=== PATIENT | female | born 1940 | race Caucasian/White ===

== ENCOUNTER 2017-01-04 16:58 | Inpatient (IN) | payer MEDICARE, OTHER ==
[~2017-01-04] VITALS: Ht 154.9 cm; Wt 68.1 kg
[~2017-01-04 16:58] MED LIST: ASPI-351 PO; CHOL10008 PO; CLOP75TA14 PO; CYAN250T14 PO; ESTR0.5T4 PO; HYDR25TA4 PO; LISI10TA PO; LOPRESSOR25 MG PO; SIMV5TAB PO; SYN75 PO
[2017-01-04 20:00] VITALS: BP 139/75; PULSE 61; RESP 16; O2SAT 97
[2017-01-04] MEDS ORDERED: Senna-Docusate 8.6-50 mg Tablet PO PRN (20:00)
[2017-01-04] MEDS ORDERED: Polyethylene Glycol (PEG) 17 Gm Powder PO PRN (20:00)
[2017-01-04] MEDS ORDERED: Ondansetron 2 mg/mL 2 mL Inj IVPUSH PRN (20:00)
[2017-01-04] MEDS ORDERED: Atropine 1 mg/10 mL (Code) Syringe IVPUSH PRN (20:00)
[2017-01-04] MEDS ORDERED: Alum-Mag Hydrox-Simeth 30 mL Suspension PO PRN (20:00)
[2017-01-04] MEDS: 0.9% Sodium Chloride 1,000 ML IV SCH (21:22)
[2017-01-04] MEDS ORDERED: LISI10TA PO ×2 (21:32→21:39)
[2017-01-04] MEDS ORDERED: HYDR25TA4 PO (21:39)
[2017-01-04] MEDS ORDERED: ASPI325T32 PO (21:39)
[2017-01-04] MEDS ORDERED: METO1TAB38 PO (21:39)
[2017-01-04] MEDS ORDERED: SIMV40TA5 PO (21:39)
[2017-01-04] MEDS ORDERED: LEVO100T6 PO (21:39)
[2017-01-04 21:59] LABS: Creatine Kinase 67 U/L (21-215)
--- NOTE | 2017-01-04 23:14 | HP ---
[address] [address] HISTORY AND PHYSICAL PATIENT: CARA ESPINOZA : 1940 MR#: [id number] ADMIT: 01/04/2017 JOB ID: [id number] DATE: 01/04/2017 REASON FOR ADMISSION: Unstable angina. HISTORY OF PRESENT ILLNESS: The patient is a 75-year-old, delightful woman with known history of hypertension, hyperlipidemia, coronary artery disease status post angioplasty to the right coronary artery 2010, history of smoking who was transferred from [facility] for further diagnostic evaluation. The patient states that she was doing fine when in the middle of the night she started having epigastric substernal chest pain while she was asleep. The pain lasted for a good half hour to 45 minutes. She woke her daughter up and came to [facility]. She was admitted early this morning to [facility]. During her transport, she was given a nitroglycerin pill which dropped her blood pressure significantly, so much so requiring IV fluids. Since then, she has not had any episodes of chest pains. Given her history of coronary artery disease status post angioplasty and risk factors of smoking, hyperlipidemia and hypertension, she was admitted for further diagnostic evaluation. Three sets of troponins were performed which demonstrated borderline elevation of troponin levels. Given her history and presentation, further diagnostic evaluation was indicated. Therefore, the patient was transferred to [facility] under my care. The transferring physician was Dr. Oscar Hunter. On arrival to the floor, the patient was alert, oriented and in no apparent discomfort or chest pains. REVIEW OF SYSTEMS: Unremarkable. CURRENT MEDICATIONS: 1. Aspirin 325 mg daily. 2. Hydrochlorothiazide 25 mg daily. 3. Metoprolol-XL with hydrochlorothiazide 12.5 mg daily. 4. Simvastatin 40 mg daily. 5. Levothyroxine 100 mcg daily. PAST MEDICAL HISTORY: Significant for hypertension, hyperlipidemia, history of smoking, the patient is currently smoking, and history of angioplasty to the right coronary artery in 2010. ALLERGIES: She is allergic to PENICILLIN. PAST SURGICAL HISTORY: She has bilateral total knee on both sides and hand surgery. REVIEW OF SYSTEMS: All 13 review of systems were reviewed and there are insignificant. 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 She is lives with her daughter in [place]. PHYSICAL EXAMINATION: Vital signs: Blood pressure 139/75, pulse 61. She is alert, oriented, not in distress. Her pupils are normal size, normal reaction. Oral: Dental hygiene is marginal. She wears dentures. Neck is soft, supple. No elevated JVD. Chest is clear to auscultation. S1-S2 is normal. Regular. Abdomen is benign. Lower extremities: No pedal edema. Neurologically, she is grossly intact. LABS: Still pending. The troponin level is 0.010. EKG Sinus bradycardia, Low voltage. ASSESSMENT: 1. Unstable angina. This a 76-year-old with known history of coronary artery disease status post angioplasty to the mid right coronary artery, hypertension, hyperlipidemia and active smoker who comes in for chest pain evaluation. Given her history and borderline elevation of troponin, this is likely a non ST elevation myocardial infarction versus unstable angina. Patient was started on aspirin and started on Lovenox 70 mg subcu. Serial troponin levels were ordered as well. The patient is to get an echocardiogram to assess both LV and RV function as the patient had severe and profound hypotension when she was given nitroglycerin in transit from house to the hospital for her chest pain symptoms. 2. Hypertension. Patient is on current medications. No further intervention is required. PLAN: 1. Admit to the hospital. 2. Start her home medications. 3. Nitroglycerin should be given very carefully to make sure her blood pressure remains stable. 4. Lovenox 80 mg based on 1 mg/kg body weight every 12 hours. First dose to be given now and the dose of Lovenox to be held for tomorrow morning as she is scheduled for cardiac catheterization. 5. Resume all medications. 6. Consent placed in the chart. MTDD
[2017-01-04 23:35] VITALS: BP 125/62; PULSE 65; RESP 16; O2SAT 97
[2017-01-05] VITALS (26 sets, daily range): BP systolic 108–158; BP diastolic 48–86; PULSE 55–85; RESP 12–20; O2SAT 96–99
[2017-01-05] MEDS: Sodium Chloride LOK Flush 10 mL Syringe IVFLUSH SCH ×8 (00:30→23:29)
[2017-01-05 02:45] LABS: BASOPHILS % (AUTO) 0.7 % (0-3); EOSINOPHILS % (AUTO) 8.2 % (0-5); MONOCYTES % (AUTO) 9.6 % (4-12); Mean Corpuscular Hemoglobin 31.2 pg (27.0-35.0); Mean Corpuscular Volume 91.4 fL (81-100); NEUTROPHILS % (AUTO) 53.4 % (40-74); Platelet Count 296 bil/L (150-400)
[2017-01-05 03:15] LABS: Creatine Kinase 62 U/L (21-215)
--- NOTE | 2017-01-05 04:44 | NUR ---
Admit/Tele/ Admitted to Room #2009 @ 1999 , assessment and admission interview completed , Foreclosure Home Inspector visited Pt. Appointment w central lab technician for 01/05/17 , Pt is NPO, room air A&O x3, no C/O pain. NS@ 80. Tele: -00
[2017-01-05] MEDS ORDERED: 0.9% Sodium Chloride 1,000 ML IV ONE (06:00)
[2017-01-05] MEDS: 0.9% Sodium Chloride 1,000 ML IV SCH ×2 (08:30→11:47)
[2017-01-05] MEDS ORDERED: Heparin 1,000 Units/500 mL NS Premix IV ONE ×2 (11:55→14:42)
[2017-01-05] MEDS ORDERED: Heparin 10,000 Unit/1,000 mL NS Premix IV ONE ×2 (11:56→14:42)
--- NOTE | 2017-01-05 13:31 | NUR ---
Case Management: Clarification of patient status: inpatient per MD order on 01/04/17. Dana Jaquez RN
[2017-01-05] MEDS ORDERED: fentaNYL-PF 50 mCg/mL 2 mL Inj ONE (14:44)
--- NOTE | 2017-01-05 14:49 | NUR ---
Off unit Pt off unit to cheesemaking laborer for procedure at 1430. Report given to cheesemaking laborer staff at bedside. Report to be called to NIKO shortly. Vitals stable, pt SL from NS, property assessment monitor aware and tele removed.
[2017-01-05] MEDS ORDERED: Heparin 1,000 Unit/mL 10 mL Inj ONE (15:08)
[2017-01-05] MEDS ORDERED: hydrALAZINE 20 mg/mL Inj ONE (15:11)
[2017-01-05] MEDS ORDERED: 0.9% Sodium Chloride 250 ML ONE (15:28)
[2017-01-05] MEDS ORDERED: Adenosine 3 mg/mL 2 mL Inj ONE (15:28)
[2017-01-05] MEDS ORDERED: 0.9% Sodium Chloride 250 ML IV PRN (16:02)
[2017-01-05] MEDS ORDERED: 0.9% Sodium Chloride 1,000 ML IV PRN (16:02)
[2017-01-05] MEDS ORDERED: Atropine 1 mg/10 mL (Code) Syringe IVPUSH PRN (16:05)
[2017-01-05] MEDS ORDERED: Ondansetron 2 mg/mL 2 mL Inj IVPUSH PRN (16:05)
[2017-01-05] MEDS ORDERED: HYDROcodone-APAP 5-325 mg Tablet PO PRN (16:05)
--- NOTE | 2017-01-05 16:34 | DI95 ---
[address] [address] INTERVENTIONAL CARDIAC CATHETERIZATION PATIENT: CARA ESPINOZA : 1940 MR#: [id number] ADMIT: 01/04/2017 JOB ID: [id number] PROCEDURE: Fractional flow reserve of the left anterior descending. Fractional flow reserve of the circumflex. Femoral angiography. INDICATION: Mild troponin elevation. Borderline lesions in the LAD and circumflex on an angiogram done by Dr. Mercado. PROCEDURAL DETAILS: The reader and the coders are referred to the procedure log. Briefly this was done via a 6-Swiss Voda 3.0 guide. An FFR wire was placed initially in the LAD and then in the circumflex. HEMODYNAMICS: The FFR in LAD was 0.88 after 120 mcg of intracoronary adenosine. In the circumflex after repeat injection of 100 mcg of adenosine the FFR was 0.98, thereby confirming neither of these lesions were angiographically significant. Of note, the patient has a totally occluded SFA. Extensive collateralization around the hip is noted. If the patient is symptomatic from her vascular disease consideration can be given to revascularizing her totally occluded SFA.
--- NOTE | 2017-01-05 17:21 | DRSVH ---
[facility] [address] [place] [address] Echocardiogram Report Name: CARA ESPINOZA Date: 01/05/2017 Height: 61 in Hospital Exam Location: [facility] Weight: 150 lb Gender: Female BSA: 1.7 m2 : 1940 Age: 76 yrs BP: 143/75 mmHg Reason For Study: Chest pain Ordering Physician: Performed By: Joaquin Woodard Interpretation Summary 1. Normal LV size and function. The estimated ejecion fraction is 60-65%. 2. Normal biatrial size with intact interatrial septum. 3. Sclero-degenerative valve changes. No doppler evidence of significant valve diseases. 4. Great vessels are normal size. Procedure: A two-dimensional transthoracic echocardiogram with color flow and Doppler was performed. The study quality was technically adequate. There is no prior echocardiogram noted for this patient. The patient was in sinus bradycardia with heart rates between 44-56 bpm during the exam. Left Ventricle: The left ventricle is normal in size. There is normal left ventricular wall thickness. The ejection fraction is estimated to be 60-65%. Left ventricular wall motion is normal. Right Ventricle: The right ventricle grossly appears normal in size with probable normal systolic function. Atria: Both atria are normal in size. The interatrial septum is intact with no evidence for an atrial septal defect. Mitral Valve: The mitral valve is normal. There is trace mitral regurgitation. Aortic Valve: The aortic valve is normal in structure and function. No aortic regurgitation is present. Tricuspid Valve: The tricuspid valve is normal. Pulmonary artery pressures cannot be estimated because of the lack of a measurable TR jet velocity. Pulmonic Valve: The pulmonic valve is not well visualized. Great Vessels: The aortic root is normal size. The dimensions of the ascending aorta are normal. The pulmonary artery is not well visualized, but is probably normal size. The IVC is of normal diameter and collapses greater than 50% with a sniff. This suggests a low right atrial pressure of 3 mm Hg. Pericardium/ Pleura There is no pericardial effusion. There is no pleural effusion. MMode/2D Measurements & Calculations LVIDd: 4.7 cm RA long axis LVOT diam LVIDs: 2.5 cm LA A2 area: 16.0 cm FS: 47.1 % LA A4 area: 14.4 cm RA area Ao root diam LA length (vol): 4.7 cm LA vol: 41.8 ml : 13.0 cm asc Aorta LA vol index RA vol: 30.1 mlDiam: 3.0 cm RA : 18.0 mm2 IVC diam: 1.9 cm LV engel. diameter/BSA LV sys. diameter/BSA RVD1 (basal) TAPSE: 1.8 cm (cm/m^2): 2.8 (cm/m^2): 1.5 Doppler Measurements & Calculations Ao V2 max MV E max chris MV E/A: 1.4 MV dec time : 170.7 cm/sec : 117.1 cm/sec Med Peak E' Chris : 0.19 sec Ao max PG MV A max crhis : 11.7 mmHg : 85.8 cm/sec E/E' med: 19.5 Ao mean PG Lat Peak E' Chris LVOT Max Chris E/E' lat: 20.2 : 105.6 cm/sec E/e' average: 19.9 SHANNON(I,D): 2.0 cm sev ratio: 0.57 Ao V2 mean LV V1 max PG SHANNON indexed to BSA : 113.7 cm/sec (cm^2/m^2): 1.2 Ao V2 VTI: 42.9 cm LV V1 VTI: 24.5 cm SHANNON(V,D): 2.2 cm2 Electronically signed by: Dr. Yayo Mercado on Reading Physician:01/05/2017 05:20 PM
--- NOTE | 2017-01-05 18:28 | CS94 ---
[address] [address] DIAGNOSTIC CARDIAC CATHETERIZATION PATIENT: CARA ESPINOZA : 1940 MR#: [id number] ADMIT: 01/04/2017 JOB ID: [id number] SERVICE DATE: 01/05/2017 PROCEDURES: 1. Retrograde left heart catheterization. 2. Selective left and right coronary angiography. 3. Left ventricular hemodynamics. 4. Right groin angiography. INDICATION: Chest pain in the setting of known history of coronary artery disease status post angioplasty to right coronary artery in 2010. Patient has history of hypertension, hyperlipidemia, and history of smoking and an active smoker. CONSENT: The patient was explained the risks, benefits, and alternatives of the procedure. Informed signed consent was obtained and placed in the chart. DESCRIPTION OF PROCEDURE: The patient was brought to the cath laboratory and placed on the cath table. Both groins were prepped and draped in the usual sterile manner. Lidocaine 1% was infiltrated in the right groin area. Anatomical landmarks were established. Using a modified Seldinger technique a 6-Welsh arterial sheath was placed in the right femoral artery without any difficulty. An FL4 catheter was used to engage the left main coronary artery. Multiple views of the left coronary artery were obtained in multiple projections. Additionally FR4 catheter was used to engage the right coronary artery. Multiple views of the right coronary artery were obtained in multiple projections. Subsequently, left ventricular hemodynamics was obtained. No left ventricular cineangiography was performed. Right groin angiography was performed. TOTAL FLUOROSCOPY TIME: 6.9 minutes. TOTAL CONTRAST USED: 130 mL. COMPLICATIONS: None. FINDINGS: HEMODYNAMICS: 1. The left ventricular end-diastolic pressure was 17 mmHg. The LV pressure was 195/6. There was no left ventricular to aortic gradient. 2. The left main coronary artery is mildly diffusely diseased and bifurcates into left anterior descending artery and left circumflex coronary artery. 3. The left anterior descending artery is mildly diffusely diseased throughout its course in the proximal, mid, and distal segments. Diffuse atherosclerotic plaquing noted in the proximal, mid, and distal LAD. The mid LAD has a focal discrete lesion of 40% to 50%. The septal back end architect arising from the mid LAD again demonstrates diffuse plaquing. 4. The left circumflex coronary artery is diffusely diseased, with segments of ectasia. The mid left circumflex has a discrete 50% to 60% stenosis with an eccentric plaque. 5. The OM branch demonstrates mild diffuse disease as well with mild calcification. 6. The right coronary artery has mild ostial stenosis. The proximal RCA has 30% to 40% stenosis. It is followed by a widely patent stent. Distal to the stent again there is a focal 40% to 50% stenosis noted. The distal RCA demonstrates diffuse disease. The right groin angiography demonstrated total occlusion of the superficial femoral artery. IMPRESSION: 1. Diffuse three-vessel coronary artery disease. 2. A 50% to 60% stenosis noted in the mid circumflex coronary artery. 3. Widely patent stent in the proximal-mid right coronary artery. PLAN: Given intermediate severity of the left circumflex disease, I asked Dr. Graham to perform a fractional flow reserve, a physiological study to assess for hemodynamic significance of the intermediate lesion in the mid circumflex. He graciously agreed to perform the procedure for me.
--- NOTE | 2017-01-05 20:34 | NUR ---
NIKO PT WAS RECEIVED FROM FARE REGISTER REPAIRER AT [address] MONITORED Q15MIN PER PROTOCOL. SHEATH WAS PULLED BY TOY DEPARTMENT MANAGER AT 1817 AND PRESSURE HELD. RIGHT GROIN HAS REMAINED SOFT, NON TENDER, NO BLEEDING OR HEMATOMA NOTED AND RIGHT DP 1+. PT HAS TOLERATED PO FLUIDS AND A MEAL. REPORT GIVEN TO ELSY Melton RN AND PT AND HER NURSING CARE WERE TRANSFERRED BACK TO ROOM 2008 AT 2024. RN TO RN BEDSIDE HANDOFF WAS DONE AND TELE WAS PLACED. BEDREST UNTIL 2244.
[2017-01-06 03:30] VITALS: BP 132/76; PULSE 67; RESP 20; O2SAT 97
[2017-01-06 05:51] VITALS: PULSE 75
--- NOTE | 2017-01-06 07:53 | NUR ---
Cardiac Pt arrived to unit from [facility] close to 2100, vitals stable, pt denied chest pain overnight. Pt off bedrest at 2245 and tolerated well, asymptomatic w/ steady gait. Right groin site soft, no s/sx of hematoma, pedal pulse weak but palpable. Tele SR 60s.
[2017-01-06 08:00] VITALS: PULSE 64
--- NOTE | 2017-01-06 08:00 | NUR ---
[facility] Signed
[2017-01-06] MEDS: Sodium Chloride LOK Flush 10 mL Syringe IVFLUSH SCH ×2 (08:08)
[2017-01-06 08:30] VITALS: BP 154/74; PULSE 65; RESP 16; O2SAT 97
--- NOTE | 2017-01-06 09:15 | NUR ---
Social Work: Initial Assessment/Multidisciplinary Rounds D: Per EMR review, pt is a 76 year old female admitted for chest pain. Pt is Medicare with [employer] with no LTC insurance or VA benefits. PCP is Juan Miguel Quiñonez MD. NOK is dtr, Aishwarya Barahonaman, . AD completed- VP EMERGING MEDIA requested copy for spouse. No RA score entered at this time. VP EMERGING MEDIA met with the patient at bedside. Sw role explained, contact info and d/c planning checklist provided. Pt lives in [place] with her daughter. Pt is I at baseline, uses no DME, is I with all self-care and certified dialysis technician. Pt lives in a 2 story home with 6 steps to enter. Pt has no concerns about stair ambulation and states that she has never required home health but had a short stay at [facility]. Pt expresses no concerns or barriers to discharge and states her daughter will transport her home when she is medically stable. Pt has been ambulating I and participating in her own self care during admission. A: Pt who is I at baseline. P: Anticipate pt to discharge home via POV and no sw needs; VP EMERGING MEDIA to continue to follow to assess for discharge needs. MARYANA Evangelista Addendum: 01/06/17 at 0919 by MICAHEL CHOUDHARY Amended: Links added.
--- NOTE | 2017-01-06 09:15 | PCM.DIMED ---
Discharge Instructions Date of Service Jan 06, 2017 Dates of Hospitalization Jan 04, 2017 at 19:59 Discharge Diagnosis Discharge Diagnosis Coronary Artery Disease Diet Discharge Diet: Heart Healthy Activity Discharge Activity: No restrictions Call your provider Call your provider for: Fever or Chills, Shortness of breath, Bleeding, Chest pain, Weakness (unilateral), Other (Signs of infection in the area of the groin where the cateheter was inserted) Ortiz Kenney PA-C Jan 06, 2017 09:14
--- NOTE | 2017-01-06 09:26 | PCM.DIMED ---
Discharge Instructions Date of Service Jan 06, 2017 Dates of Hospitalization Jan 04, 2017 at 19:59 Discharge Diagnosis Discharge Diagnosis Coronary Artery Disease Diet Discharge Diet: Heart Healthy Activity Discharge Activity: No restrictions Call your provider Call your provider for: Fever or Chills, Shortness of breath, Bleeding, Chest pain, Weakness (unilateral), Other (Signs of infection in the area of the groin where the cateheter was inserted. Take showers. Do not take baths or submerge the wound.) Patient Instructions Follow-up in: 1 week Mid-level Provider (F9): Ortiz Kenney PA-C, William W PA-C Jan 06, 2017 09:26
--- NOTE | 2017-01-06 10:40 | NUR ---
Discharge Pt left with daughter at 1030. No changes in home medications, although some home medications were entered wrong in med rec but pt had list of what she took and double checked with med rec at discharge and everything was still the same. Pt understood due to it being the weekend that she needed to call Sunday to make her follow up apt. Went over again post heart cath discharge instructions and pt understood and all questions answered. All belongings taken with the pt. Pt left A&Ox3, vitals stable, right groin soft and non tender.
--- NOTE | 2017-01-08 11:50 | DIS ---
[address] [address] DISCHARGE SUMMARY PATIENT: CARA ESPINOZA : 1940 MR#: [id number] ADMIT: 01/04/2017 JOB ID: [id number] DIS: 01/06/2017 ADMISSION DATE: 01/04/2017 DISCHARGE DATE: 01/06/2017 DISCHARGE DIAGNOSIS: Coronary artery disease. PROCEDURES: 1. Left heart catheterization. 2. Fractional flow reserve of the left anterior descending artery as well as the circumflex artery. 3. Echocardiogram. BRIEF HISTORY: The patient is a delightful 75-year-old female with a known history of hypertension, hyperlipidemia, coronary artery disease status post angioplasty of the right coronary artery in 2010. She also has a history of smoking. She states that in the middle of the night she started having epigastric substernal chest pain, which woke her up. The pain lasted for 45 minutes to an hour as such, she went for evaluation at the emergency department [facility] in [place]. Given her condition and her medical history she was transferred to [facility] for further evaluation. HOSPITAL COURSE: She was admitted to the hospital for further evaluation. There were no cough. There were no complications. Left heart catheterization revealed: 1. Diffuse three-vessel coronary artery disease. 2. 50% to 60% stenosis of the mid circumflex coronary artery. 3. Widely patent stent in the proximal mid right coronary artery. Given the immediate severity of the left circumflex disease Dr. Graham was called in to perform a fractional flow reserve. That study revealed the FFR in the LAD was 0.88 after 120 mcg of intracoronary adenosine. In the circumflex artery after repeated injections of 100 mcg of adenosine the FFR was 0.98, confirming neither of these lesions were angiographically significant. After the procedure, the patient was admitted to the floor where there were no complications. She did well. At discharge the catheter entry site of the right groin was clean, dry, and intact without signs of infection. There is no bleeding. Vital signs were stable. DISCHARGE MEDICATIONS: 1. Aspirin 325 mg daily. 2. Hydrochlorothiazide 25 mg daily. 3. Levothyroxine 100 mcg daily. 4. Lisinopril 10 mg daily. 5. Metoprolol succinate/hydrochlorothiazide 25 mg/12.5 mg daily. 6. Simvastatin 40 mg daily. DISPOSITION AND DISCHARGE INSTRUCTIONS: The patient was discharged to her home and placed on the care of her friends and family with the following instructions: 1. Heart healthy diet. 2. No restrictions in her activity. 3. Call the office if she experiences fevers, chills, shortness of breath, bleeding, chest pain, unilateral weakness, or signs of infection at the site of the groin catheter entry.
== END 2017-01-06 10:30 | disposition home or self-care (01) | DRG 287 ==
LOC: PCC 19:59 → OBSVTOIN 19:59
PROVIDERS: ADMIT Internal Medicine Cardiovascular Disease; ATTEND Internal Medicine Cardiovascular Disease
PROC: 4A023N7 Measurement of Cardiac Sampling and Pressure, Left Heart, Percutaneous Approach (ICD-10-PCS; principal; 2017-01-05)
PROC: B2111ZZ Fluoroscopy of Multiple Coronary Arteries using Low Osmolar Contrast (ICD-10-PCS; 2017-01-05)
PROC: 4A033BC Measurement of Arterial Pressure, Coronary, Percutaneous Approach (ICD-10-PCS; 2017-01-05)
PROC: B2151ZZ Fluoroscopy of Left Heart using Low Osmolar Contrast (ICD-10-PCS; 2017-01-05)
DX: I25.110 Atherosclerotic heart disease of native coronary artery with unstable angina pectoris (principal); E78.5 Hyperlipidemia, unspecified; I10 Essential (primary) hypertension; Z79.82 Long term (current) use of aspirin; Z87.891 Personal history of nicotine dependence